=== PATIENT | female | born 1935 | race Caucasian/White ===

== ENCOUNTER 2020-07-27 07:48 | Emergency (ER) | payer OTHER ==
[2020-07-27] MEDS ORDERED: methylPREDNISolone Sod Succ/PF 125 MG/2 ML VIAL ONE (07:57)
[2020-07-27 08:21] LABS: ALT (SGPT) 20 U/L (8-55); AST (SGOT) 22 U/L (5-34); Alkaline Phosphatase 75 U/L (40-110); Anion Gap 22 mmol/L (10-20); BUN (Urea Nitrogen) 12 mg/dL (9.8-20.1); Bilirubin, Total 0.4 mg/dL (0.2-1.2); Calc. Creatinine Clearance 0 mL/min (70-130); Calcium 8.9 mg/dL (7.8-10.44); Carbon Dioxide 21 mmol/L (23-31); Chloride 106 mmol/L (98-107); Estimated GFR-MDRD 49; Globulin 2.2 g/dL (2.4-3.5); Potassium 4.5 mmol/L (3.5-5.1); Protein, Total 6.2 g/dL (6.0-8.3); Sodium 144 mmol/L (136-145)
[2020-07-27 08:23] LABS: Glucose 279 mg/dL (83-110)
[2020-07-27] MEDS ORDERED: Midazolam HCl 2 mg/2 ml Vial ONE (08:23)
[2020-07-27] MEDS ORDERED: Midazolam HCl 5 mg/ml Vial ONE (08:25)
[2020-07-27] MEDS ORDERED: Sodium Chloride 0.9% 250 ML 250 ML ONE (08:30)
[2020-07-27] MEDS ORDERED: Sodium Chloride 0.9% 100 ML ONE (08:30)
[2020-07-27] MEDS ORDERED: Piperacillin/Tazobactam 3.375 GM VIAL ONE (08:30)
--- NOTE | 2020-07-27 08:39 | RAD ---
RADIOGRAPH CHEST 1 VIEW: DATE: 07/27/2020 TIME: 8:29 AM HISTORY: 85-year-old female with dyspnea COMPARISON: 12/14/2011 FINDINGS: There is a new endotracheal tube with distal tip 1 cm from the rene. New finding of nodular interst itial densities throughout the right lung and mildly in the central left lung. Again noted are the multiple surgical clips overlying the left midlung field. No effacement of lateral costophrenic angle s. No pneumothorax. IMPRESSION: 1) status post intubation with endotracheal tube close to the rene. 2) nonspecific diffuse mild interstitial densities, right greater than left.
[2020-07-27 08:45] LABS: Eosinophils 2 % (0-10); Hemoglobin 15.6 g/dL (12.0-16.0); Lymphocytes 5 % (21-51); MDiff Complete? YES; Mean Corpuscular HGB CONC 30.7 g/dL (32.0-36.0); Mean Corpuscular Hemoglobin 30.4 pg (27.0-31.0); Mean Corpuscular Volume 99.1 fL (78.0-98.0); Mean Platelet Volume 7.5 fL (7.4-10.4); Monocytes 1 % (0-10); Neutrophil 41 % (42-75); Platelet Count 283 thou/uL (130-400); Platelet Morphology Comment Appears Adequate; RBC Morphology Normal; Reactive Lymphocytes 51 % (0-10); Red Blood Cell (RBC) Count 5.12 mill/uL (4.20-5.40); Reflex for Review?? YES; White Blood Cell (WBC) Count 22.6 thou/uL (4.8-10.8)
[2020-07-27] MEDS ORDERED: Sodium Chloride 0.9% 1,000 ML BAG ONE (08:49)
[2020-07-27] MEDS ORDERED: Norepinephrine 4 MG/4 ML VIAL ONE (08:49)
[2020-07-27] MEDS ORDERED: Succinylcholine 200 MG/10 ml SYRINGE FS ONE (08:49)
[2020-07-27] MEDS ORDERED: Rocuronium Bromide 10 MG/ML (10ML VIAL) ONE (08:49)
[2020-07-27 09:14] LABS: Base Excess-Venous -10.6 mmol/L (-2.0 to 3.0); Bicarbonate (HCO3v) 22.5 mmol/L (22.0-28.0); CO2 Tension (PvCO2) 88.5 mmHg (40.0-50.0); Calcium, Ionized 1.11 mmol/L (1.15-1.33); Chloride 112 mmol/L (98-107); Hemoglobin - Calc 14.6 g/dL (12.0-16.0); Potassium 4.3 mmol/L (3.5-5.1); Sodium 144 mmol/L (138-145); T. Carbon Dioxide 25.2 mmol/L (22.0-28.0); vO2 Saturation-calc 99.5 % (60.0-85.0)
[2020-07-27 09:36] LABS: INR-International Normal Ratio 0.9; PTT 25.8 sec (22.9-36.1); Prothrombin Time 12.8 sec (12.0-14.7)
[2020-07-27 09:38] LABS: CKMB 1.6 ng/mL (0-6.6)
[2020-07-27 09:40] LABS: Bilirubin Negative (Negative); Blood, Urine Large (Negative); Glucose, Urine (Dipstick) Negative (Negative); Ketone, Urine Negative (Negative); Leukocyte Moderate (Negative); Nitrite Positive (Negative); Protein, Urine (Dipstick) 30 mg/dL (Neg-Trace); Urobilinogen 0.2 mg/dL (Less than 2)
[2020-07-27 09:41] LABS: Clarity Hazy (Clear)
[2020-07-27 09:42] LABS: Bacteria/HPF 2+ HPF (None Seen); Squamous Epithelial 0-3 HPF (0-3); WBC/HPF Greater Than 50 HPF (0-3)
[2020-07-27 09:44] LABS: CK (CPK) 51 U/L (29-168)
== END 2020-07-27 09:36 | disposition short-term general hospital (02) ==
LOC: MADERS 07:48
DX: J96.91 Respiratory failure, unspecified with hypoxia (principal); Z79.899 Other long term (current) drug therapy
CPT/HCPCS: 31500; 36556; 51702; 71045; 80053; 81015; 82330; 82550; 82553; 82803; 83605; 83880; 85025; 85060; 87040; 87077; 87086; 87186; 96365; 96366; 96368; 96375; J2250; J2543; J2930; J3370; J3490; J7050; J7070